=== PATIENT | female | born 1990 | race Two or more races ===

== ENCOUNTER 2025-01-13 18:39 | Emergency (ER) | payer BC, MEDICAID ==
[~2025-01-13] VITALS: Ht 172.7 cm; Wt 68.0 kg
[2025-01-13] MEDS: IV NS 0.9% 1,000 ML BAG IV ONE (19:41)
[2025-01-13 19:44] LABS: PLATELET COUNT (AUTO) 353 K/uL (150-450); RED BLOOD CELL COUNT(AUTO) 4.08 MIL/uL (4.0-5.2); RED CELL DISTRIBUTION WIDTH 13.5 % (11.5-15.0); WHITE BLOOD COUNT (AUTO) 4.4 K/uL (4.3-11.0)
[2025-01-13 19:51] LABS: CALCIUM, SERUM 8.4 mg/dL (8.5-10.1); CREATININE 1.0 mg/dL (0.6-1.3); SODIUM SERUM 140.0 mmol/L (136-145); UREA NITROGEN, BLOOD 9.0 mg/dL (7-18)
[2025-01-13 19:57] LABS: ASPARTATE AMINOTRANSFERASE 15.0 U/L (15-37); TOTAL PROTEIN, SERUM 7.3 g/dL (6.4-8.2)
[2025-01-13 20:21] LABS: PREGNANCY TEST URINE QUAL NEGATIVE (NEGATIVE)
[2025-01-13 20:27] LABS: AMPHETAMINE, URINE NEGATIVE (NEGATIVE); BARBITURATE, URINE NEGATIVE (NEGATIVE); BENZODIAZEPINE, URINE NEGATIVE (NEGATIVE); CANNABINOID, URINE POSITIVE (NEGATIVE); COCCAINE, URINE NEGATIVE (NEGATIVE); OPIATE, URINE NEGATIVE (NEGATIVE)
[2025-01-13 21:32] LABS: ALCOHOL, BLOOD 18.0 mg/dL (0-10)
[2025-01-13] MEDS ORDERED: ACETAMINOPHEN ES 500 MG TABLET ONE (21:33)
[2025-01-13 21:35] VITALS: BP 114/72; TEMP 98; O2SAT 97
[2025-01-13] MEDS ORDERED: ACETAMINOPHEN ES 500 MG TABLET PO ONE (22:00)
== END 2025-01-13 21:35 | disposition home or self-care (01) ==
LOC: ER 18:45
DX: S00.81XA Abrasion of other part of head, initial encounter (principal); F19.10 Other psychoactive substance abuse, uncomplicated; F12.90 Cannabis use, unspecified, uncomplicated; Z79.899 Other long term (current) drug therapy; W18.39XA Other fall on same level, initial encounter; Y93.89 Activity, other specified; Y92.89 Other specified places as the place of occurrence of the external cause; Y99.9 Unspecified external cause status
CPT/HCPCS: 36415; 70450-TC; 80048-TC; 80076-TC; 84703-TC; 85025-TC; G0480